=== PATIENT | male | born 1980 | race Caucasian/White ===

== ENCOUNTER 2023-11-25 09:34 | Inpatient (IN) | payer OTHER ==
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
[2023-11-25] MEDS: HYDROmorphone 0.5 MG/0.5 ML SYRINGE IVP STA (09:52)
[2023-11-25 09:57] LABS: Basophils # (A) 0.1 k/uL (0-0.2); Basophils % (A) 1 %; Eosinophils # (A) 0.2 k/uL (0-0.7); Eosinophils % (A) 3 %; HCT 38.4 % (39.0-53.0); HGB 13.4 gm/dL (13.0-17.5); Lymphocytes # (A) 3.2 k/uL (1.0-4.8); Lymphocytes % (A) 44 %; MCH 33.9 pg (25.0-35.0); MCHC 34.9 g/dL (31.0-37.0); Mean Platelet Volume 8.4; Monocytes # (A) 0.6 k/uL (0-1.0); Monocytes % (A) 8 %; Neutrophils % (A) 41 %; Platelet Count 108 k/uL (150-450); RBC 3.96 m/uL (4.30-5.90); RDW 12.7 % (11.5-15.5); WBC 7.3 k/uL (3.8-10.6)
[2023-11-25 10:10] LABS: ALT 193 U/L (4-49); African American GFR (CKD) >90 (>60 ml/min/1.73 sqM); Albumin 3.3 g/dL (3.5-5.0); Alcohol <10 mg/dL; Anion Gap 5 mmol/L; Blood Urea Nitrogen 19 mg/dL (9-20); Calcium 8.7 mg/dL (8.4-10.2); Carbon Dioxide 23 mmol/L (22-30); Chloride 110 mmol/L (98-107); Glucose 128 mg/dL (74-99); Non-African American GFR(CKD) >90 (>60 ml/min/1.73 sqM); Sodium 138 mmol/L (137-145); Total Protein 6.6 g/dL (6.3-8.2)
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
[2023-11-25 10:11] LABS: INR 1.1 (<1.2); Partial Thromboplastin Time 23.3 sec (22.0-30.0); Prothrombin Time 12.2 sec (10.0-12.5)
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
[2023-11-25 10:12] LABS: AST 183 U/L (17-59); Alkaline Phosphatase 102 U/L (38-126)
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
[2023-11-25] MEDS: HYDROmorphone 1 MG/ML 1 ML SYRINGE IVP STA (10:45)
[2023-11-25] MEDS ORDERED: NALOXONE 0.4 MG/ML 1 ML VIAL IV PRN (11:45)
[2023-11-25] MEDS: SODIUM CHLORIDE 0.9% 1,000 ML IV SCH ×2 (12:20→19:57)
[2023-11-25] MEDS: ACETAMINOPHEN TAB 325 MG TAB PO PRN (12:21)
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
[2023-11-25] MEDS: LACTATED RINGERS 1,000 ML IV SCH ×2 (17:43→19:57)
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
[2023-11-25 21:10] LABS: Amphetamine Screen,Urine Detected (NotDetected); Barbiturate Screen,Urine Not Detected (NotDetected); Benzodiazepines Screen,Urine Not Detected (NotDetected); Cocaine Screen,Urine Not Detected (NotDetected); Methadone Screen, Urine Detected (NotDetected); Opiate Screen,Urine Detected (NotDetected); Oxycodone Screen, Urine Not Detected (NotDetected); Phencyclidine Screen,Urine Not Detected (NotDetected); Tricyclic Antidepressant,Urine Not Detected (NotDetected); Urn Cannabinoid Scrn Not Detected (NotDetected)
[2023-11-25] MEDS: HYDROmorphone 0.5 MG/0.5 ML SYRINGE IVP PRN (21:36)
[2023-11-26] MEDS: HYDROmorphone 1 MG/ML 1 ML SYRINGE IVP PRN (02:00)
[2023-11-26 08:58] LABS: ALT 143 U/L (4-49); AST 137 U/L (17-59); African American GFR (CKD) >90 (>60 ml/min/1.73 sqM); Albumin 2.7 g/dL (3.5-5.0); Albumin/Globulin Ratio 0.9; Alkaline Phosphatase 79 U/L (38-126); Anion Gap 8 mmol/L; Blood Urea Nitrogen 21 mg/dL (9-20); Calcium 8.5 mg/dL (8.4-10.2); Carbon Dioxide 17 mmol/L (22-30); Chloride 109 mmol/L (98-107); Globulin 2.9 g/dL; Glucose 168 mg/dL (74-99); Non-African American GFR(CKD) >90 (>60 ml/min/1.73 sqM); Potassium 5.1 mmol/L (3.5-5.1); Sodium 134 mmol/L (137-145); Total Bilirubin 0.8 mg/dL (0.2-1.3); Total Protein 5.6 g/dL (6.3-8.2)
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
[2023-11-26 15:15] LABS: Basophils % (A) 0 %; Eosinophils % (A) 0 %; HCT 22.5 % (39.0-53.0); Lymphocytes # (A) 3.1 k/uL (1.0-4.8); Lymphocytes % (A) 19 %; MCH 35.5 pg (25.0-35.0); MCHC 36.8 g/dL (31.0-37.0); MCV 96.5 fL (80.0-100.0); Mean Platelet Volume 8.4; Monocytes # (A) 1.5 k/uL (0-1.0); Monocytes % (A) 9 %; Neutrophils # (A) 11.7 k/uL (1.3-7.7); Neutrophils % (A) 70 %; Platelet Count 123 k/uL (150-450); RBC 2.33 m/uL (4.30-5.90); RDW 13.6 % (11.5-15.5); WBC 16.7 k/uL (3.8-10.6)
[2023-11-26 15:21] LABS: HGB 8.3 gm/dL (13.0-17.5)
[2023-11-26] MEDS ORDERED: NON FORMULARY DRUG (Methadone Hcl [Methadone Intensol] 10 MG/ML Ml) PO SCH (16:30)
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
[2023-11-27] MEDS: LEVOTHYROXINE 75 MCG TAB PO SCH (06:10)
[2023-11-27] MEDS: NON FORMULARY DRUG (Lisdexamfetamine Dimesylate [Vyvanse] 50 MG Capsule) PO SCH (08:23)
[2023-11-27] MEDS ORDERED: lisinopriL 10 MG TAB PO SCH (09:00)
[2023-11-27 09:15] LABS: Basophils % (A) 0 %; Eosinophils % (A) 0 %; HCT 21.2 % (39.0-53.0); HGB 7.5 gm/dL (13.0-17.5); Lymphocytes # (A) 2.8 k/uL (1.0-4.8); Lymphocytes % (A) 23 %; MCH 34.9 pg (25.0-35.0); MCHC 35.2 g/dL (31.0-37.0); MCV 99.1 fL (80.0-100.0); Mean Platelet Volume 8.7; Monocytes # (A) 0.9 k/uL (0-1.0); Monocytes % (A) 7 %; Neutrophils # (A) 8.1 k/uL (1.3-7.7); Neutrophils % (A) 67 %; RBC 2.14 m/uL (4.30-5.90); RDW 13.8 % (11.5-15.5); WBC 12.1 k/uL (3.8-10.6)
[2023-11-27] MEDS: METHADONE 5 MG TAB PO SCH (09:18)
[2023-11-27] MEDS: METHADONE 10 MG TAB PO SCH (09:19)
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
[2023-11-27] MEDS: LACTATED RINGERS 1,000 ML IV SCH (09:47)
[2023-11-27 09:57] LABS: ALT 133 U/L (4-49); AST 124 U/L (17-59); African American GFR (CKD) >90 (>60 ml/min/1.73 sqM); Albumin 2.7 g/dL (3.5-5.0); Alkaline Phosphatase 77 U/L (38-126); Anion Gap 6 mmol/L; Blood Urea Nitrogen 15 mg/dL (9-20); Calcium 8.3 mg/dL (8.4-10.2); Carbon Dioxide 22 mmol/L (22-30); Chloride 107 mmol/L (98-107); Glucose 162 mg/dL (74-99); Non-African American GFR(CKD) >90 (>60 ml/min/1.73 sqM); Potassium 4.2 mmol/L (3.5-5.1); Sodium 135 mmol/L (137-145); Total Bilirubin 0.9 mg/dL (0.2-1.3); Total Protein 5.5 g/dL (6.3-8.2)
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
[2023-11-27 11:10] LABS: Platelet Count 97 k/uL (150-450)
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
[2023-11-27 15:17] LABS: Basophils % (A) 0 %; Eosinophils # (A) 0.1 k/uL (0-0.7); Eosinophils % (A) 1 %; HGB 7.2 gm/dL (13.0-17.5); Lymphocytes # (A) 2.7 k/uL (1.0-4.8); Lymphocytes % (A) 22 %; MCHC 35.8 g/dL (31.0-37.0); MCV 97.7 fL (80.0-100.0); Mean Platelet Volume 8.1; Monocytes # (A) 1.1 k/uL (0-1.0); Monocytes % (A) 9 %; Neutrophils % (A) 66 %; RBC 2.05 m/uL (4.30-5.90); RDW 13.8 % (11.5-15.5); WBC 12.1 k/uL (3.8-10.6)
[2023-11-27 15:20] LABS: Platelet Count 92 k/uL (150-450)
[2023-11-27 15:40] LABS: Glucose,Whole Blood 109 mg/dL (70-110)
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
[2023-11-27] MEDS: ATORVASTATIN 10 MG TAB PO SCH (19:53)
[2023-11-27 23:38] LABS: Basophils % (A) 0 %; Eosinophils # (A) 0.3 k/uL (0-0.7); Eosinophils % (A) 2 %; HCT 20.4 % (39.0-53.0); HGB 7.2 gm/dL (13.0-17.5); Lymphocytes # (A) 3.8 k/uL (1.0-4.8); Lymphocytes % (A) 29 %; MCHC 35.4 g/dL (31.0-37.0); MCV 98.7 fL (80.0-100.0); Mean Platelet Volume 8.2; Monocytes # (A) 1.3 k/uL (0-1.0); Monocytes % (A) 10 %; Neutrophils # (A) 7.5 k/uL (1.3-7.7); Neutrophils % (A) 57 %; RBC 2.07 m/uL (4.30-5.90); RDW 13.5 % (11.5-15.5); WBC 13.2 k/uL (3.8-10.6)
[2023-11-27 23:55] LABS: Platelet Count 97 k/uL (150-450)
[2023-11-28 04:25] LABS: Basophils % (A) 0 %; Eosinophils # (A) 0.1 k/uL (0-0.7); Eosinophils % (A) 1 %; HGB 7.4 gm/dL (13.0-17.5); Lymphocytes # (A) 2.6 k/uL (1.0-4.8); Lymphocytes % (A) 22 %; MCH 34.4 pg (25.0-35.0); MCHC 35.3 g/dL (31.0-37.0); MCV 97.7 fL (80.0-100.0); Mean Platelet Volume 8.3; Monocytes # (A) 1.1 k/uL (0-1.0); Monocytes % (A) 10 %; Neutrophils # (A) 7.4 k/uL (1.3-7.7); Neutrophils % (A) 64 %; RBC 2.15 m/uL (4.30-5.90); RDW 13.3 % (11.5-15.5); WBC 11.5 k/uL (3.8-10.6)
[2023-11-28 04:32] LABS: ALT 121 U/L (4-49); AST 103 U/L (17-59); African American GFR (CKD) >90 (>60 ml/min/1.73 sqM); Albumin 2.8 g/dL (3.5-5.0); Alkaline Phosphatase 85 U/L (38-126); Anion Gap 2 mmol/L; Blood Urea Nitrogen 12 mg/dL (9-20); Calcium 8.2 mg/dL (8.4-10.2); Carbon Dioxide 28 mmol/L (22-30); Chloride 106 mmol/L (98-107); Glucose 102 mg/dL (74-99); Non-African American GFR(CKD) >90 (>60 ml/min/1.73 sqM); Sodium 136 mmol/L (137-145); Total Bilirubin 1.4 mg/dL (0.2-1.3); Total Protein 5.7 g/dL (6.3-8.2)
[2023-11-28 05:08] LABS: Platelet Count 84 k/uL (150-450)
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
[2023-11-29] MEDS: HYDROcodone/APAP 5-325MG 1 EACH TAB PO PRN (03:21)
[2023-11-29 04:56] LABS: HCT 21.2 % (39.0-53.0); HGB 7.3 gm/dL (13.0-17.5); MCH 33.9 pg (25.0-35.0); MCHC 34.4 g/dL (31.0-37.0); MCV 98.6 fL (80.0-100.0); Mean Platelet Volume 8.7; RBC 2.15 m/uL (4.30-5.90); RDW 13.7 % (11.5-15.5)
[2023-11-29 05:02] LABS: Platelet Count 98 k/uL (150-450)
[2023-11-29 05:04] LABS: African American GFR (CKD) >90 (>60 ml/min/1.73 sqM); Anion Gap 3 mmol/L; Blood Urea Nitrogen 10 mg/dL (9-20); Calcium 7.9 mg/dL (8.4-10.2); Carbon Dioxide 27 mmol/L (22-30); Chloride 105 mmol/L (98-107); Glucose 135 mg/dL (74-99); Non-African American GFR(CKD) >90 (>60 ml/min/1.73 sqM); Potassium 3.5 mmol/L (3.5-5.1); Sodium 135 mmol/L (137-145)
[2023-11-29] MEDS ORDERED: Potassium Replacement Protocol 1 EACH MISC MISCELLANE PRN (05:25)
[2023-11-29] MEDS: POTASSIUM CHLORIDE ER 20 MEQ TAB.ER PO SCH (06:30)
--- NOTE | 2023-11-29 11:13 | XR ---
EXAMINATION TYPE: XR chest 1V portable DATE OF EXAM: 11/29/2023 COMPARISON: 11/27/2023. HISTORY: Pleural effusion. TECHNIQUE: Single frontal view of the chest is obtained. FINDINGS: Lung volumes are low slightly limiting the evaluation. There is no focal air space opacity , pleural effusion, or pneumothorax seen. The cardiac silhouette size is within normal limits. The osseous structures are intact. IMPRESSION: No acute process.
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
[2023-11-29] MEDS: lisinopriL 10 MG TAB PO SCH (11:39)
[2023-11-29] MEDS: FERROUS SULFATE 325 MG TAB PO SCH (11:41)
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
[2023-11-29] MEDS: SENNOSIDES 8.6 MG TAB PO PRN (18:38)
[2023-11-30 10:51] LABS: HCT 22.5 % (39.6-50.0); HGB 7.6 g/dL (13.0-17.0); MCH 33.3 pg (27.0-32.0); MCHC 33.8 g/dL (32.0-37.0); MCV 98.7 FL (80.0-97.0); Mean Platelet Volume 10.7 FL (9.5-12.2); NRBC Per 100 WBC 0.05 X 10*3/uL (0.00-0.01); Platelet Count 130 X 10*3/uL (140-440); RBC 2.28 X 10*6/uL (4.40-5.60); RDW 13.9 % (11.5-14.5); WBC 10.05 X 10*3/uL (4.50-10.00)
[2023-11-30 11:12] LABS: ALT 90 U/L (10-49); AST 76 U/L (14-35); Albumin/Globulin Ratio 1.07 Ratio (1.60-3.17); Alkaline Phosphatase 85 U/L (41-126); BUN/Creat Ratio 13.14 Ratio (12.00-20.00); Blood Urea Nitrogen 9.2 mg/dL (9.0-27.0); Calcium 8.3 mg/dL (8.7-10.3); Chloride 102 mmol/L (96-109); Globulin 2.8 g/dL (1.6-3.3); Glucose 100 mg/dL (70-110); Magnesium 1.8 mg/dL (1.5-2.4); Potassium 4.3 mmol/L (3.5-5.5); Sodium 135 mmol/L (135-145); Total Bilirubin 1.4 mg/dL (0.3-1.2); Total Protein 5.8 g/dL (6.2-8.2)
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
[2023-11-30 14:36] VITALS: BMI 34.5
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
[2023-12-01 10:34] LABS: HCT 24.9 % (39.0-53.0); HGB 8.7 gm/dL (13.0-17.5); MCH 34.5 pg (25.0-35.0); MCHC 34.9 g/dL (31.0-37.0); MCV 98.8 fL (80.0-100.0); Macrocytosis Slight; Mean Platelet Volume 7.6; Poikilocytosis Slight; RBC 2.52 m/uL (4.30-5.90); RDW 14.6 % (11.5-15.5); WBC 11.8 k/uL (3.8-10.6)
[2023-12-01 10:42] LABS: Platelet Count 176 k/uL (150-450)
[2023-12-01 11:00] LABS: ALT 72 U/L (4-49); AST 87 U/L (17-59); African American GFR (CKD) >90 (>60 ml/min/1.73 sqM); Alkaline Phosphatase 85 U/L (38-126); Anion Gap 8 mmol/L; Blood Urea Nitrogen 15 mg/dL (9-20); Calcium 8.3 mg/dL (8.4-10.2); Carbon Dioxide 24 mmol/L (22-30); Chloride 102 mmol/L (98-107); Globulin 3.1 g/dL; Glucose 124 mg/dL (74-99); Non-African American GFR(CKD) >90 (>60 ml/min/1.73 sqM); Potassium 4.4 mmol/L (3.5-5.1); Sodium 134 mmol/L (137-145); Total Bilirubin 2.5 mg/dL (0.2-1.3); Total Protein 6.1 g/dL (6.3-8.2)
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
[2023-12-02 19:49] LABS: ALT 65 U/L (4-49); AST 95 U/L (17-59); African American GFR (CKD) >90 (>60 ml/min/1.73 sqM); Albumin 2.8 g/dL (3.5-5.0); Albumin/Globulin Ratio 0.9; Alkaline Phosphatase 77 U/L (38-126); Anion Gap 0 mmol/L; Bilirubin, Conjugated 0.5 mg/dL (0.0-0.3); Bilirubin,Unconjugated 1.3 mg/dL (0.0-1.1); Blood Urea Nitrogen 16 mg/dL (9-20); Calcium 8.2 mg/dL (8.4-10.2); Carbon Dioxide 32 mmol/L (22-30); Chloride 101 mmol/L (98-107); Globulin 3.1 g/dL; Glucose 123 mg/dL (74-99); Non-African American GFR(CKD) >90 (>60 ml/min/1.73 sqM); Potassium 4.2 mmol/L (3.5-5.1); Sodium 133 mmol/L (137-145); Total Bilirubin 2.6 mg/dL (0.2-1.3); Total Protein 5.9 g/dL (6.3-8.2)
[2023-12-02 19:50] LABS: Basophils % (A) 0 %; Eosinophils # (A) 0.4 k/uL (0-0.7); Eosinophils % (A) 3 %; HCT 25.7 % (39.0-53.0); HGB 8.7 gm/dL (13.0-17.5); Hypochromasia Slight; Lymphocytes # (A) 1.7 k/uL (1.0-4.8); Lymphocytes % (A) 16 %; MCH 34.3 pg (25.0-35.0); MCHC 33.7 g/dL (31.0-37.0); MCV 101.6 fL (80.0-100.0); Macrocytosis Slight; Mean Platelet Volume 9.2; Monocytes % (A) 9 %; Neutrophils # (A) 7.3 k/uL (1.3-7.7); Neutrophils % (A) 69 %; Platelet Count 185 k/uL (150-450); Poikilocytosis Slight; RBC 2.53 m/uL (4.30-5.90); RDW 14.9 % (11.5-15.5); WBC 10.6 k/uL (3.8-10.6)
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
[2023-12-02] MEDS: CYCLOBENZAPRINE 10 MG TAB PO STA (22:22)
[2023-12-03 07:24] LABS: HCT 27.4 % (39.0-53.0); HGB 9.5 gm/dL (13.0-17.5); Hypochromasia Slight; MCH 34.9 pg (25.0-35.0); MCHC 34.6 g/dL (31.0-37.0); MCV 101.1 fL (80.0-100.0); Macrocytosis Slight; Mean Platelet Volume 7.3; Platelet Count 207 k/uL (150-450); Poikilocytosis Slight; RBC 2.72 m/uL (4.30-5.90); RDW 14.9 % (11.5-15.5); WBC 11.6 k/uL (3.8-10.6)
[2023-12-03 07:50] LABS: ALT 62 U/L (4-49); AST 104 U/L (17-59); African American GFR (CKD) >90 (>60 ml/min/1.73 sqM); Albumin/Globulin Ratio 0.9; Alkaline Phosphatase 88 U/L (38-126); Anion Gap 4 mmol/L; Blood Urea Nitrogen 18 mg/dL (9-20); Calcium 8.2 mg/dL (8.4-10.2); Carbon Dioxide 28 mmol/L (22-30); Chloride 101 mmol/L (98-107); Globulin 3.4 g/dL; Glucose 96 mg/dL (74-99); Non-African American GFR(CKD) >90 (>60 ml/min/1.73 sqM); Potassium 4.4 mmol/L (3.5-5.1); Sodium 133 mmol/L (137-145); Total Bilirubin 2.8 mg/dL (0.2-1.3); Total Protein 6.4 g/dL (6.3-8.2)
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
[2023-12-03] MEDS: tiZANidine 4 MG TAB PO PRN (10:46)
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
--- NOTE | 2023-12-03 12:01 | P.PN ---
Subjective Progress Note Date: 12/03/23 Principal diagnosis: Trauma Patient says he is doing better today. Pain is lessening. Some discomfort with deep inspiration. Hemoglobin improved today at 9.5. Vital signs have been stable. Tolerating regular diet. Objective - Vital Signs Vital signs: Vital Signs Temp 98.2 F 12/03/23 07:25 Pulse 98 12/03/23 08:40 Resp 18 12/03/23 08:40 BP 130/72 12/03/23 07:25 Pulse Ox 95 12/03/23 07:25 FiO2 Intake & Output 12/02/23 12/03/23 12/03/23 17:59 06:59 18:59 Intake Total Output Total Balance Intake: Oral Output: Urine Other: Voiding Method Toilet Urinal # Voids - Exam Abdomen: Soft, nondistended, mild diffuse tenderness - Labs CBC & Chem 7: 12/03/23 07:01 12/03/23 07:01 Labs: Abnormal Lab Results - Last 24 Hours (Table) 12/02/23 12/02/23 12/03/23 Range/Units 10:51 10:51 07:01 WBC 11.6 H (3.8-10.6) k/uL RBC 2.53 L 2.72 L (4.30-5.90) m/uL Hgb 8.7 L 9.5 L (13.0-17.5) gm/dL Hct 25.7 L 27.4 L (39.0-53.0) % MCV 101.6 H 101.1 H (80.0-100.0) fL Sodium 133 L (137-145) mmol/L Carbon Dioxide 32 H (22-30) mmol/L Creatinine 0.62 L (0.66-1.25) mg/dL Glucose 123 H (74-99) mg/dL Calcium 8.2 L (8.4-10.2) mg/dL Total Bilirubin 2.6 H (0.2-1.3) mg/dL Conjugated Bilirubin 0.5 H (0.0-0.3) mg/dL Unconjugated Bilirubin 1.3 H (0.0-1.1) mg/dL AST 95 H (17-59) U/L ALT 65 H (4-49) U/L Total Protein 5.9 L (6.3-8.2) g/dL Albumin 2.8 L (3.5-5.0) g/dL 12/03/23 Range/Units 07:01 WBC (3.8-10.6) k/uL RBC (4.30-5.90) m/uL Hgb (13.0-17.5) gm/dL Hct (39.0-53.0) % MCV (80.0-100.0) fL Sodium 133 L (137-145) mmol/L Carbon Dioxide (22-30) mmol/L Creatinine 0.64 L (0.66-1.25) mg/dL Glucose (74-99) mg/dL Calcium 8.2 L (8.4-10.2) mg/dL Total Bilirubin 2.8 H (0.2-1.3) mg/dL Conjugated Bilirubin (0.0-0.3) mg/dL Unconjugated Bilirubin (0.0-1.1) mg/dL AST 104 H (17-59) U/L ALT 62 H (4-49) U/L Total Protein (6.3-8.2) g/dL Albumin 3.0 L (3.5-5.0) g/dL Assessment and Plan (1) Splenic laceration Narrative/Plan: Patient doing better today. Continue monitoring hemoglobin. Possible discharge next few days. Current Visit: Yes Status: Acute Code(s): S36.039A - UNSPECIFIED LACERATION OF SPLEEN, INITIAL ENCOUNTER SNOMED Code(s): 125068607
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
[2023-12-04 06:59] LABS: Chloride 99 mmol/L (98-107)
[2023-12-04 07:00] LABS: ALT 49 U/L (4-49); AST 94 U/L (17-59); African American GFR (CKD) >90 (>60 ml/min/1.73 sqM); Albumin 2.5 g/dL (3.5-5.0); Albumin/Globulin Ratio 0.8; Alkaline Phosphatase 70 U/L (38-126); Anion Gap 1 mmol/L; Blood Urea Nitrogen 30 mg/dL (9-20); Calcium 7.8 mg/dL (8.4-10.2); Carbon Dioxide 30 mmol/L (22-30); Globulin 3.1 g/dL; Glucose 150 mg/dL (74-99); Non-African American GFR(CKD) 84 (>60 ml/min/1.73 sqM); Potassium 4.5 mmol/L (3.5-5.1); Sodium 130 mmol/L (137-145); Total Bilirubin 2.1 mg/dL (0.2-1.3); Total Protein 5.6 g/dL (6.3-8.2)
[2023-12-04 11:05] LABS: Basophils # (A) 0.05 X 10*3/uL (0.00-0.10); Basophils % (A) 0.5 %; Eosinophils # (A) 0.33 X 10*3/uL (0.04-0.35); Eosinophils % (A) 3.5 %; HCT 25.6 % (39.6-50.0); HGB 8.4 g/dL (13.0-17.0); Lymphocytes # (A) 2.18 X 10*3/uL (0.90-5.00); Lymphocytes % (A) 23.1 %; MCH 33.7 pg (27.0-32.0); MCHC 32.8 g/dL (32.0-37.0); MCV 102.8 FL (80.0-97.0); Mean Platelet Volume 9.5 FL (9.5-12.2); Monocytes # (A) 1.09 X 10*3/uL (0.20-1.00); Monocytes % (A) 11.6 %; NRBC Per 100 WBC 0 X 10*3/uL (0.00-0.01); Neutrophils % (A) 59.4 %; Platelet Count 179 X 10*3/uL (140-440); RBC 2.49 X 10*6/uL (4.40-5.60); RDW 15.1 % (11.5-14.5); WBC 9.43 X 10*3/uL (4.50-10.00)
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
[2023-12-04 15:57] LABS: African American GFR (CKD) >90 (>60 ml/min/1.73 sqM); Anion Gap 4 mmol/L; Blood Urea Nitrogen 26 mg/dL (9-20); Calcium 7.6 mg/dL (8.4-10.2); Carbon Dioxide 26 mmol/L (22-30); Chloride 102 mmol/L (98-107); Glucose 156 mg/dL (74-99); Non-African American GFR(CKD) 86 (>60 ml/min/1.73 sqM); Sodium 132 mmol/L (137-145)
[2023-12-04] MEDS: SODIUM CHLORIDE 0.9% 1,000 ML IV SCH (16:03)
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
[2023-12-05 11:15] LABS: HCT 27.7 % (39.6-50.0); HGB 8.9 g/dL (13.0-17.0); MCH 33.8 pg (27.0-32.0); MCHC 32.1 g/dL (32.0-37.0); MCV 105.3 FL (80.0-97.0); Mean Platelet Volume 9.9 FL (9.5-12.2); NRBC Per 100 WBC 0 X 10*3/uL (0.00-0.01); Platelet Count 165 X 10*3/uL (140-440); RBC 2.63 X 10*6/uL (4.40-5.60); RDW 15.5 % (11.5-14.5); WBC 6.65 X 10*3/uL (4.50-10.00)
[2023-12-05 11:31] LABS: BUN/Creat Ratio 20.56 Ratio (12.00-20.00); Blood Urea Nitrogen 18.5 mg/dL (9.0-27.0); Carbon Dioxide 23.7 mmol/L (21.6-31.8); Chloride 102 mmol/L (96-109); Glucose 125 mg/dL (70-110); Potassium 5.1 mmol/L (3.5-5.5); Sodium 133 mmol/L (135-145)
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
[2023-12-05 11:52] LABS: Basophils # (A) 0.04 X 10*3/uL (0.00-0.10); Basophils % (A) 0.6 %; Eosinophils # (A) 0.19 X 10*3/uL (0.04-0.35); Eosinophils % (A) 2.9 %; Lymphocytes # (A) 1.69 X 10*3/uL (0.90-5.00); Lymphocytes % (A) 25.4 %; Monocytes # (A) 0.65 X 10*3/uL (0.20-1.00); Monocytes % (A) 9.8 %; Neutrophils # (A) 3.99 X 10*3/uL (1.80-7.70); Neutrophils % (A) 59.9 %; RBC Morphology Normal (Normal)
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
[2023-12-05 16:42] LABS: % Iron Saturation 23.78 (15.00-50.00)
[2023-12-06 10:01] LABS: HCT 32.4 % (39.0-53.0); HGB 10.3 gm/dL (13.0-17.5); Hypochromasia Moderate; MCH 34.4 pg (25.0-35.0); MCHC 31.9 g/dL (31.0-37.0); Macrocytosis Marked; Mean Platelet Volume 8.2; Platelet Count 203 k/uL (150-450); Poikilocytosis Slight; RDW 15.6 % (11.5-15.5); WBC 6.9 k/uL (3.8-10.6)
[2023-12-06 10:03] LABS: MCV 107.8 fL (80.0-100.0)
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
[2023-12-06 12:32] LABS: ALT 53 U/L (4-49); AST 103 U/L (17-59); African American GFR (CKD) >90 (>60 ml/min/1.73 sqM); Albumin 2.7 g/dL (3.5-5.0); Albumin/Globulin Ratio 0.7; Alkaline Phosphatase 107 U/L (38-126); Blood Urea Nitrogen 15 mg/dL (9-20); Calcium 8.1 mg/dL (8.4-10.2); Chloride 107 mmol/L (98-107); Globulin 3.8 g/dL; Glucose 90 mg/dL (74-99); Non-African American GFR(CKD) >90 (>60 ml/min/1.73 sqM); Potassium 4.9 mmol/L (3.5-5.1); Sodium 134 mmol/L (137-145); Total Bilirubin 1.5 mg/dL (0.2-1.3); Total Protein 6.5 g/dL (6.3-8.2)
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
[2023-12-06] MEDS: HAEMOPH B POLY CONJ-TET TOX/PF 10 MCG/0.5 ML VIAL IM ONE (14:56)
[2023-12-06] MEDS: MENINGOCOCCAL B VACCINE,4-COMP 0.5 ML SYRINGE IM ONE (15:20)
[2023-12-06] MEDS: PNEUMOCOCCAL VACC-PREVNAR-20 0.5 ML SYR IM ONE (15:27)
[2023-12-06] MEDS: [UNRECOGNIZED DRUG - OTHER] IM ONE (15:28)
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
[2023-12-07 11:26] LABS: HCT 30.6 % (39.6-50.0); MCH 32.8 pg (27.0-32.0); MCHC 32.7 g/dL (32.0-37.0); MCV 100.3 FL (80.0-97.0); NRBC Per 100 WBC 0 X 10*3/uL (0.00-0.01); Platelet Count 192 X 10*3/uL (140-440); RBC 3.05 X 10*6/uL (4.40-5.60); RDW 15.4 % (11.5-14.5); WBC 9.69 X 10*3/uL (4.50-10.00)
[2023-12-07 11:51] LABS: ALT 51 U/L (10-49); AST 78 U/L (14-35); Albumin 2.8 g/dL (3.8-4.9); Albumin/Globulin Ratio 0.82 Ratio (1.60-3.17); Alkaline Phosphatase 108 U/L (41-126); BUN/Creat Ratio 17.33 Ratio (12.00-20.00); Blood Urea Nitrogen 15.6 mg/dL (9.0-27.0); Calcium 8.7 mg/dL (8.7-10.3); Carbon Dioxide 24.9 mmol/L (21.6-31.8); Chloride 101 mmol/L (96-109); Globulin 3.4 g/dL (1.6-3.3); Glucose 90 mg/dL (70-110); Potassium 4.8 mmol/L (3.5-5.5); Sodium 133 mmol/L (135-145); Total Bilirubin 0.9 mg/dL (0.3-1.2); Total Protein 6.2 g/dL (6.2-8.2)
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
[2023-12-08] MEDS: LACTATED RINGERS 1,000 ML IV SCH (06:20)
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
[2023-12-08] MEDS: IV FLUID CONTINUATION 1,000 ML IV ONE ×2 (11:20→12:21)
[2023-12-08] MEDS: LACTATED RINGERS 1,000 ML IV ONE (12:21)
[2023-12-08] MEDS: ONDANSETRON 4 MG/2 ML VIAL ONE (12:24)
[2023-12-08] MEDS: MIDAZOLAM 2 MG/2 ML VIAL IVP ONE (12:25)
[2023-12-08] MEDS: fentaNYL (PF) 50 MCG/ML 2 ML AMP IVP ONE (12:31)
--- NOTE | 2023-12-08 12:48 | P.ANPRN ---
Procedure Note - Anesthesia - Nerve Block Performed Left Popliteal Single Time Out Performed: Yes Date of Procedure: 12/08/23 Procedure Start Time: 12:23 Procedure Stop Time: 12:30 Location of Patient: PreOp Indication: Acute Post-Operative Pain, Analgesia, Requested by Surgeon Sedation Type: Sedate with meaningful contact maintained Preparation: Sterile Prep Position: Right Lateral Needle Types: Pajunk Needle Gauge: 21 Ultrasound used to visualize needle placement: Yes Ultrasound used to observe medication spread: Yes Injectate: 0.5% Ropivacaine (see comment for volume) (Ropiv 20ml+decadron 4mg) Blood Aspirated: No Pain Paresthesia on Injection Noted: No Resistance on Injection: Normal Image Stored and Saved: Yes Events: Uneventful and Well Tolerated
--- NOTE | 2023-12-08 12:50 | P.ANPRN ---
Procedure Note - Anesthesia - Nerve Block Performed Left Adductor Canal Single Time Out Performed: Yes Date of Procedure: 12/08/23 Procedure Start Time: 12:31 Procedure Stop Time: 12:36 Location of Patient: PreOp Indication: Acute Post-Operative Pain, Analgesia, Requested by Surgeon Sedation Type: Sedate with meaningful contact maintained Preparation: Sterile Prep Position: Supine Catheter: None Needle Types: Pajunk Needle Gauge: 21 Ultrasound used to visualize needle placement: Yes Ultrasound used to observe medication spread: Yes Injectate: 0.5% Ropivacaine (see comment for volume) (Ropiv 15ml+decadron 4mg) Blood Aspirated: No Pain Paresthesia on Injection Noted: No Resistance on Injection: Normal Image Stored and Saved: Yes Events: Uneventful and Well Tolerated
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
[2023-12-08] MEDS ORDERED: PROPOFOL 10 MG/ML 20 ML VIAL IV ONE (13:46)
[2023-12-08] MEDS ORDERED: ROPIVACAINE 5 MG/ML 30 ML VIAL ONE (13:46)
[2023-12-08] MEDS ORDERED: MIDAZOLAM 2 MG/2 ML VIAL ONE (13:46)
[2023-12-08] MEDS ORDERED: LIDOCAINE 1% INJ 10MG/ML (20 ML MDV) ONE (13:46)
[2023-12-08] MEDS ORDERED: DEXAMETHASONE SOD PHOSPHATE 4 MG/ML 1 ML VIAL ONE (13:46)
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
--- NOTE | 2023-12-08 16:42 | FL ---
EXAMINATION TYPE: FL guidance operating room, XR ankle limited LT Intraoperative/procedural fluorosco pic services were provided. Total fluoroscopy time is 17 seconds with a total of 2 submitted images t o PACS. Please see the operative/procedural note for further details. DAP: 0.2771 mGym2
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
--- NOTE | 2023-12-09 14:15 | P.PN ---
Subjective Progress Note Date: 12/09/23 Principal diagnosis: Ruptured spleen grade 5 Patient is feeling good today tolerating clear liquid diet Objective - Vital Signs Vital signs: Vital Signs Temp 97.7 F 12/09/23 13:19 Pulse 64 12/09/23 13:19 Resp 16 12/09/23 13:19 BP 100/61 12/09/23 13:19 Pulse Ox 94 L 12/09/23 13:19 FiO2 Intake & Output 12/08/23 12/09/23 12/09/23 18:59 06:59 18:59 Intake Total 670 Output Total 305 800 Balance 365 -800 Intake: IV 570 Lactated Ringers 1,000 ml 120 @ 20 mls/hr IV .Q24H [facility] Rx#:[id number] Intake, IV Titration 100 Amount ceFAZolin 2 gm In Sodium 100 Chloride 0.9% 50 ml @ 100 mls/hr IVPB ONCE ONE Rx# :[id number] Output: Urine 300 800 Estimated Blood Loss 5 Other: Voiding Method Urinal # Voids 3 - Constitutional General appearance: Present: average body habitus - EENT Eyes: Present: EOMI, PERRLA ENT: Present: NA/AT Ears: bilateral: normal - Neck Neck: Present: normal ROM - Respiratory Respiratory: bilateral: CTA - Cardiovascular Rhythm: regular - Gastrointestinal General gastrointestinal: Present: normal bowel sounds - Musculoskeletal Musculoskeletal: Present: gait normal - Psychiatric Psychiatric: Present: A&O x's 3 - Labs CBC & Chem 7: 12/07/23 07:27 12/07/23 07:27 - Imaging and Cardiology CT scan - abdomen: report reviewed Assessment and Plan Assessment: Hemoglobin last checked was stable. Patient is vital signs are stable. He is tolerating clear liquid diet. (1) Splenic laceration Current Visit: Yes Status: Acute Code(s): S36.039A - UNSPECIFIED LACERATION OF SPLEEN, INITIAL ENCOUNTER SNOMED Code(s): 724312713 Plan: Advance diet to regular. Increase activity. Patient may need vaccinations prior to discharge. Time with Patient: Greater than 30
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
--- NOTE | 2023-12-10 11:01 | P.PN ---
Progress Note - Text Progress Note Date: 12/10/23 Patient [place] stable. There is no acute changes. Abdomen soft. He'll receive supportive care.
--- NOTE | 2023-12-10 11:25 | P.PN ---
Subjective Progress Note Date: 12/10/23 Principal diagnosis: Displaced pilon fracture left ankle status post external fixation application Patient visited bedside. Patient's resting comfortably in bed. External fixato rs in place. Denies nausea, vomiting, calf pain, fever, chills, or shortness of breath. Patient states that he is requesting pain medication that has a longer duration. Currently on IV Dilaudid but he feels like it does not last very long. Objective - Vital Signs Vital signs: Vital Signs Temp 98 F 12/10/23 07:51 Pulse 63 12/10/23 07:51 Resp 17 12/10/23 07:51 BP 105/64 12/10/23 10:08 Pulse Ox 96 12/10/23 07:51 FiO2 Intake & Output 12/09/23 12/10/23 12/10/23 18:59 06:59 18:59 Intake Total 2040 930 Output Total 1000 700 Balance 1040 230 Intake: IV 240 Lactated Ringers 1,000 ml 240 @ 20 mls/hr IV .Q24H [facility] Rx#:[id number] Oral 2040 690 Output: Urine 1000 700 - Exam Left leg elevated on pillows. External fixator in place. Dressings are clean and dry. Brisk capillary refill intact to all digits left foot. Light touch sensation intact to all digits left foot. - Labs CBC & Chem 7: 12/07/23 07:27 12/07/23 07:27 Assessment and Plan (1) Fracture of distal end of left fibula Narrative/Plan: Discussed the future with the patient. The intraoperative FluoroScan after the application of the external fixator showed a reasonable alignment of the fracture fragments. The difficulty lies and definitive fixation for this fracture, given the time. Necessary to perform the surgery so that the splenic laceration can heal properly. The issue with the initial surgery was that the patient could not be placed prone on the operating room table which was required for the surgery. Therefore the decision was made to apply the external fixator to keep the fracture stable as possible. The recommendation for weight time for the definitive surgery is 4 weeks. I discussed with the patient would be d ifficult to manipulate the fragments back into position after that amount of time has elapsed. Right now the alignment is acceptable. There is a possibility of leaving the external fixator place for an extended duration of time to allow the fragments to consolidate in the current position. I have already discussed with the patient the high incidence of post traumatic arthritis in the ankle joint following an injury such as his. With definitive fixation of the fractures, the goal is to align the joint as best as possible. A secondary goal is to also improve the alignment of the ankle joint so that any future procedures will not have to address a significant deformity to optimize the outcome of the procedure. Over the next 2 weeks, it'll be determined what the best direction to go it is. The patient understands the treatment plan. Follow up in my office within the week. Current Visit: Yes Status: Acute Code(s): S82.832A - OTH FRACTURE OF UPPER AND LOWER END OF LEFT FIBULA, INIT SNOMED Code(s): 102156083 (2) Pilon fracture of left tibia Current Visit: Yes Status: Acute Code(s): S82.872A - DISPLACED PILON FRACTURE OF LEFT TIBIA, INIT FOR CLOS FX SNOMED Code(s): 976636133
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
[2023-12-11 13:27] VITALS: BP 118/68; PULSE 73; RESP 17; TEMP 97.9
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
== END 2023-12-11 17:21 | disposition home or self-care (01) | DRG 930 ==
LOC: EC 09:34 → 6NMEDSUR 11:45 → OBSVTOIN 11:45 → 6NMEDSUR 16:16 → 1SOBS 11-26 13:33 → 2SICU 11-27 15:42 → 5NMEDONC 11-29 19:17
PROVIDERS: ADMIT Student in an Organized Health Care Education/Training Program; ATTEND Student in an Organized Health Care Education/Training Program
PROC: 3E0234Z Introduction of Serum, Toxoid and Vaccine into Muscle, Percutaneous Approach (ICD-10-PCS; principal; 2023-12-06)
PROC: 3E02340 Introduction of Influenza Vaccine into Muscle, Percutaneous Approach (ICD-10-PCS; 2023-12-06)
PROC: 2W3RXYZ Immobilization of Left Lower Leg using Other Device (ICD-10-PCS; 2023-12-08)
PROC: 3E0T3BZ Introduction of Anesthetic Agent into Peripheral Nerves and Plexi, Percutaneous Approach (ICD-10-PCS; 2023-12-08)
DX: S82.852A Displaced trimalleolar fracture of left lower leg, initial encounter for closed fracture (principal); S36.032A Major laceration of spleen, initial encounter; S27.321A Contusion of lung, unilateral, initial encounter; J96.01 Acute respiratory failure with hypoxia; K66.1 Hemoperitoneum; I82.432 Acute embolism and thrombosis of left popliteal vein; N17.9 Acute kidney failure, unspecified; B18.2 Chronic viral hepatitis C; F11.20 Opioid dependence, uncomplicated; E87.20 Acidosis, unspecified; D62 Acute posthemorrhagic anemia; E87.1 Hypo-osmolality and hyponatremia; I95.9 Hypotension, unspecified; D69.59 Other secondary thrombocytopenia; E87.8 Other disorders of electrolyte and fluid balance, not elsewhere classified; F32.A Depression, unspecified; I10 Essential (primary) hypertension; F17.290 Nicotine dependence, other tobacco product, uncomplicated; F90.9 Attention-deficit hyperactivity disorder, unspecified type; E86.1 Hypovolemia; Y92.410 Unspecified street and highway as the place of occurrence of the external cause; V43.52XA Car driver injured in collision with other type car in traffic accident, initial encounter; Z23 Encounter for immunization; E03.9 Hypothyroidism, unspecified; E78.5 Hyperlipidemia, unspecified; S82.872A Displaced pilon fracture of left tibia, initial encounter for closed fracture; E80.6 Other disorders of bilirubin metabolism; S20.211A Contusion of right front wall of thorax, initial encounter; D72.828 Other elevated white blood cell count; S30.1XXA Contusion of abdominal wall, initial encounter; W22.11XA Striking against or struck by driver side automobile airbag, initial encounter; Z79.890 Hormone replacement therapy; Z79.899 Other long term (current) drug therapy
CPT/HCPCS: 29515; 36415; 64445; 64447; 70450; 71045; 71260; 72125; 72170; 74177; 76705; 80048; 80053; 80076; 80306; 80320; 82728; 83540; 83550; 83735; 84484; 85025; 85027; 85610; 85730; 86850; 86900; 86901; 90620; 90648; 90677; 90734; 93005; 93306; 93970; 94760; 96361; 96374; 96376; 99285

== ENCOUNTER 2024-01-03 11:49 | Day surgery (SDC) | payer OTHER ==
[2024-01-02 11:09] VITALS: BMI 29.4
[2024-01-03] MEDS: ONDANSETRON 4 MG/2 ML VIAL IVP ONE (12:34)
[2024-01-03] MEDS: DEXAMETHASONE SOD PHOSPHATE 4 MG/ML 1 ML VIAL IV ONE (12:34)
[2024-01-03] MEDS: LACTATED RINGERS 1,000 ML IV SCH (12:34)
[2024-01-03] MEDS ORDERED: MIDAZOLAM 2 MG/2 ML VIAL ONE (12:41)
[2024-01-03] MEDS ORDERED: fentaNYL (PF) 50 MCG/ML 2 ML AMP ONE (12:41)
[2024-01-03] MEDS ORDERED: PROPOFOL 10 MG/ML 20 ML VIAL IV ONE (12:41)
[2024-01-03] MEDS ORDERED: LIDOCAINE 1% INJ 10MG/ML (20 ML MDV) ONE (12:41)
[2024-01-03] MEDS: BUPIVACAINE (PF) 0.25% 30 ML VIAL SQ ONE (12:43)
--- NOTE | 2024-01-03 13:16 | P.OP ---
Date of Procedure: 01/03/24 Preoperative Diagnosis: 1. Displaced pilon fracture left ankle 2. Retained multiplane external fixator left ankle Postoperative Diagnosis: 1. Same 2. Same Procedure(s) Performed: 1. Removal of multiplanar external fixator left ankle 2. Application of short left leg splint Implants: none Anesthesia: DARNELL Surgeon: Jim Vance Estimated Blood Loss (ml): 5 Pathology: none sent Condition: stable Disposition: PACU Description of Procedure: The patient was brought into the operative room and placed on table supine position. Timeout was taken to confirm correct patient identifiers, correct laterally of surgery, and correct procedure. Once all staff in the room were in agreement with the timeout, the patient was induced and placed under general anesthesia. the entry points for the pins through the skin were prepped with Betadine and then the sterile drape was applied to the leg. The brackets were unscrewed from the main portions of the frame so that the entire [place] removed the tibial pins were then reversed and removed intact without complication. The calcaneal pin was reversed and removed intact without complication. All pin tracks were thoroughly irrigated with sterile saline. The pin tracks skin was closed with 3-0 nylon. Nonadherent gauze and a bulky dry dressing applied to the left leg. The patient was placed in a well-padded, well molded plaster posterior mold/sugar tong splint. Ankle was held in neutral position until a was dried. Anesthesia was reversed and the patient was taken recovery with vital signs stable
[2024-01-03] MEDS: HYDROmorphone 0.5 MG/0.5 ML SYRINGE IVP PRN (13:25)
[2024-01-03] MEDS: HYDROmorphone 0.5 MG/0.5 ML SYRINGE IVP ONE (13:41)
[2024-01-03 13:52] VITALS: TEMP 97.8
[2024-01-03] MEDS: IBUPROFEN 800 MG TAB PO STA (14:25)
[2024-01-03 15:21] VITALS: BP 111/67; PULSE 64; RESP 14
== END 2024-01-03 15:16 | disposition home or self-care (01) ==
LOC: OR 11:49
PROVIDERS: ATTEND Podiatrist
DX: S82.872A Displaced pilon fracture of left tibia, initial encounter for closed fracture (principal); I10 Essential (primary) hypertension; E78.5 Hyperlipidemia, unspecified; E03.9 Hypothyroidism, unspecified; G40.909 Epilepsy, unspecified, not intractable, without status epilepticus; K21.9 Gastro-esophageal reflux disease without esophagitis; F41.9 Anxiety disorder, unspecified; F10.90 Alcohol use, unspecified, uncomplicated; F17.290 Nicotine dependence, other tobacco product, uncomplicated; F32.A Depression, unspecified; Z90.89 Acquired absence of other organs; Z90.49 Acquired absence of other specified parts of digestive tract; Z79.890 Hormone replacement therapy; X58.XXXA Exposure to other specified factors, initial encounter
CPT/HCPCS: 20694; J2250; J1100; J0690; J2405; J2001; J3010; J2704; J1170; J0665

== ENCOUNTER → 2024-03-29 | Outpatient (CLI) | payer OTHER ==
[2024-03-30 02:07] LABS: Basophils # (A) 0.04 X 10*3/uL (0.00-0.10); Basophils % (A) 0.6 %; Eosinophils # (A) 0.21 X 10*3/uL (0.04-0.35); Eosinophils % (A) 3.3 %; HCT 39.6 % (39.6-50.0); HGB 13.9 g/dL (13.0-17.0); Immature Grans, Automated 0 %; Lymphocytes # (A) 2.87 X 10*3/uL (0.90-5.00); Lymphocytes % (A) 45.7 %; MCHC 35.1 g/dL (32.0-37.0); MCV 91.2 FL (80.0-97.0); Mean Platelet Volume 12.2 FL (9.5-12.2); Monocytes # (A) 0.74 X 10*3/uL (0.20-1.00); Monocytes % (A) 11.8 %; NRBC Per 100 WBC 0 X 10*3/uL (0.00-0.01); Neutrophils # (A) 2.42 X 10*3/uL (1.80-7.70); Neutrophils % (A) 38.6 %; Platelet Count 128 X 10*3/uL (140-440); RBC 4.34 X 10*6/uL (4.40-5.60); RDW 12.9 % (11.5-14.5); WBC 6.28 X 10*3/uL (4.50-10.00)
[2024-03-30 02:31] LABS: ALT 166 U/L (10-49); AST 146 U/L (14-35); Albumin 3.9 g/dL (3.8-4.9); Albumin/Globulin Ratio 1.11 Ratio (1.60-3.17); Alkaline Phosphatase 151 U/L (41-126); BUN/Creat Ratio 20.38 Ratio (12.00-20.00); Blood Urea Nitrogen 16.3 mg/dL (9.0-27.0); Calcium 9.3 mg/dL (8.7-10.3); Carbon Dioxide 24.2 mmol/L (21.6-31.8); Chloride 104 mmol/L (96-109); Globulin 3.5 g/dL (1.6-3.3); Glucose 128 mg/dL (70-110); Potassium 4.3 mmol/L (3.5-5.5); Sodium 138 mmol/L (135-145); Total Protein 7.4 g/dL (6.2-8.2)
== END | disposition home or self-care (01) ==
LOC: LABWHC1 14:54
PROVIDERS: ATTEND Internal Medicine Gastroenterology
DX: B18.2 Chronic viral hepatitis C (principal)
CPT/HCPCS: 36415; 80053; 81596; 82105; 85025; 87522

== ENCOUNTER → 2024-11-26 | Outpatient (CLI) | payer OTHER ==
[2024-11-26 18:10] LABS: Basophils # (A) 0.04 X 10*3/uL (0.00-0.10); Basophils % (A) 0.5 %; Eosinophils # (A) 0.11 X 10*3/uL (0.04-0.35); Eosinophils % (A) 1.4 %; HCT 37.4 % (39.6-50.0); HGB 13.1 g/dL (13.0-17.0); Lymphocytes # (A) 2.52 X 10*3/uL (0.90-5.00); Lymphocytes % (A) 31.9 %; MCH 32.1 pg (27.0-32.0); MCV 91.7 FL (80.0-97.0); Mean Platelet Volume 10.8 FL (9.5-12.2); Monocytes # (A) 0.66 X 10*3/uL (0.20-1.00); Monocytes % (A) 8.4 %; NRBC Per 100 WBC 0 X 10*3/uL (0.00-0.01); Neutrophils # (A) 4.53 X 10*3/uL (1.80-7.70); Neutrophils % (A) 57.4 %; Platelet Count 169 X 10*3/uL (140-440); RBC 4.08 X 10*6/uL (4.40-5.60); RDW 12.2 % (11.5-14.5); WBC 7.89 X 10*3/uL (4.50-10.00)
[2024-11-26 18:35] LABS: ALT 40 U/L (10-49); AST 41 U/L (14-35); Albumin 4.1 g/dL (3.8-4.9); Albumin/Globulin Ratio 1.32 Ratio (1.60-3.17); Alkaline Phosphatase 112 U/L (41-126); Blood Urea Nitrogen 14.6 mg/dL (9.0-27.0); Calcium 9.5 mg/dL (8.7-10.3); Carbon Dioxide 25.3 mmol/L (21.6-31.8); Chloride 107 mmol/L (96-109); Globulin 3.1 g/dL (1.6-3.3); Glucose 136 mg/dL (70-110); LDL Cholesterol,Calculated 91.2 mg/dL (0.0-131.0); Potassium 4.1 mmol/L (3.5-5.5); Sodium 146 mmol/L (135-145); Total Bilirubin 0.4 mg/dL (0.3-1.2); Total Protein 7.2 g/dL (6.2-8.2)
== END | disposition home or self-care (01) ==
LOC: LABWHC1 15:01
PROVIDERS: ATTEND Internal Medicine Gastroenterology
DX: B18.2 Chronic viral hepatitis C (principal); I10 Essential (primary) hypertension; E78.5 Hyperlipidemia, unspecified; E03.9 Hypothyroidism, unspecified
CPT/HCPCS: 36415; 80053; 80061; 83036; 84443; 85025; 87522